=== PATIENT | male | born 1940 | race Caucasian/White ===

== ENCOUNTER 2019-01-15 10:41 | Outpatient (REF) | payer OTHER, SELFPAY ==
[2019-01-15 20:36] LABS: Anion Gap 9.4 mmol/L (3-11); BUN 17 mg/dL (7-18); CO2 28.6 mmol/L (21.0-32.0); CREATININE 0.96 mg/dL (0.70-1.30); Calcium 8.8 mg/dL (8.5-10.1); Chloride 102 mmol/L (98-107); Glucose 129 mg/dL (70-100); Potassium 4.3 mmol/L (3.5-5.1); Sodium 140 mmol/L (136-145)
== END 2019-01-15 11:01 ==
LOC: NCHCN 10:41
PROVIDERS: PCP Physician Assistant; Visit Provider Physician Assistant Medical
DX: E11.9 Type 2 diabetes mellitus without complications (principal)
CPT/HCPCS: 80048

== ENCOUNTER 2020-01-22 13:05 | Outpatient (REF) | payer OTHER, SELFPAY ==
[2020-01-22 20:30] LABS: ALT 21 U/L (16-63); Anion Gap 6.3 mmol/L (3-11); BUN 12 mg/dL (7-18); CO2 29.7 mmol/L (21.0-32.0); CREATININE 0.86 mg/dL (0.70-1.30); Chloride 102 mmol/L (98-107); Glucose 109 mg/dL (74-106); LDL CHOLESTEROL 71 mg/dL (<100); Potassium 4.4 mmol/L (3.5-5.1); Sodium 138 mmol/L (136-145)
== END 2020-01-22 13:25 ==
LOC: NCHCN 13:05
PROVIDERS: PCP Physician Assistant; Visit Provider Internal Medicine
DX: I87.2 Venous insufficiency (chronic) (peripheral) (principal); E11.40 Type 2 diabetes mellitus with diabetic neuropathy, unspecified; E11.9 Type 2 diabetes mellitus without complications; E78.5 Hyperlipidemia, unspecified
CPT/HCPCS: 80048; 83721; 84460

== ENCOUNTER 2021-02-14 13:13 | Outpatient (REF) | payer OTHER, SELFPAY ==
[2021-02-14 19:43] LABS: ALT 37 U/L (16-63); Anion Gap 7.2 mmol/L (3-11); BUN 18 mg/dL (7-18); CO2 26.8 mmol/L (21.0-32.0); Calcium 8.9 mg/dL (8.5-10.1); Chloride 104 mmol/L (98-107); Glucose 134 mg/dL (74-106); LDL CHOLESTEROL 72 mg/dL (<100); Potassium 4.3 mmol/L (3.5-5.1); Sodium 138 mmol/L (136-145)
[2021-02-14 19:53] LABS: COMMENT (LAB VIEW ONLY) 171.04 mg/dL; Microalb ug/mg Crea 5.6 ug/mg Cr
== END 2021-02-14 13:14 | disposition home or self-care (01) ==
LOC: NCHCN 13:13
PROVIDERS: PCP Physician Assistant; Visit Provider Internal Medicine
DX: E11.9 Type 2 diabetes mellitus without complications (principal); E78.5 Hyperlipidemia, unspecified; N40.0 Benign prostatic hyperplasia without lower urinary tract symptoms
CPT/HCPCS: 80048; 83721; 82043; 82570; 84460

== ENCOUNTER 2022-10-02 16:36 | Outpatient (REF) | payer MEDICARE, SELFPAY ==
[2022-10-02 20:06] LABS: Anion Gap 6.5 mmol/L (3-11); BUN 22 mg/dL (7-18); CO2 26.5 mmol/L (21.0-32.0); CREATININE 1.1 mg/dL (0.70-1.30); Calcium 9.3 mg/dL (8.5-10.1); Calculated LDL 54 mg/dL (<100); Chloride 99 mmol/L (98-107); Cholesterol 126 mg/dL (<200); Estimated GFR 66.61 (mL/min/1.73m2); Glucose 139 mg/dL (74-106); HDL Cholesterol 50 mg/dL (40-60); Potassium 4.5 mmol/L (3.5-5.1); Sodium 132 mmol/L (136-145); Triglyceride 112 mg/dL (<150)
== END 2022-10-02 16:37 | disposition home or self-care (01) ==
LOC: NCHCN 16:36
PROVIDERS: PCP Physician Assistant; Visit Provider Internal Medicine
DX: E11.9 Type 2 diabetes mellitus without complications (principal); E78.5 Hyperlipidemia, unspecified
CPT/HCPCS: 80048; 80061

== ENCOUNTER 2023-01-01 12:45 | Outpatient (REF) | payer MEDICARE, SELFPAY ==
[2023-01-01 19:41] LABS: COMMENT (LAB VIEW ONLY) 61.71 mg/dL; Microalb ug/mg Crea 26.1 ug/mg Cr
== END 2023-01-01 12:46 | disposition home or self-care (01) ==
LOC: NCHCN 12:45
PROVIDERS: PCP Physician Assistant; Visit Provider Internal Medicine
DX: I35.0 Nonrheumatic aortic (valve) stenosis (principal); E11.40 Type 2 diabetes mellitus with diabetic neuropathy, unspecified
CPT/HCPCS: 82043; 82570

== ENCOUNTER 2023-11-02 14:53 | Outpatient (REF) | payer MEDICARE, SELFPAY ==
[2023-11-02 20:02] LABS: COMMENT (LAB VIEW ONLY) 47.39 mg/dL; Microalb ug/mg Crea 20.7 ug/mg Cr
== END 2023-11-02 14:54 | disposition home or self-care (01) ==
LOC: NCHCN 14:53
PROVIDERS: PCP Physician Assistant; Visit Provider Internal Medicine
DX: E11.9 Type 2 diabetes mellitus without complications (principal)
CPT/HCPCS: 82043; 82570

== ENCOUNTER 2024-08-28 13:28 | Outpatient (REF) | payer MEDICARE, SELFPAY ==
[2024-08-28 19:38] LABS: ALT 32 U/L (16-63); Anion Gap 4.1 mmol/L (3-11); BUN 25 mg/dL (7-18); CO2 29.9 mmol/L (21.0-32.0); CREATININE 1.1 mg/dL (0.70-1.30); Calcium 9.8 mg/dL (8.5-10.1); Calculated LDL 61 mg/dL (<100); Chloride 105 mmol/L (98-107); Cholesterol 152 mg/dL (<200); Creatine Kinase 74 U/L (39-308); Estimated GFR 66.19 (mL/min/1.73m2); Glucose 159 mg/dL (74-106); HDL Cholesterol 62 mg/dL (40-60); Potassium 4.5 mmol/L (3.5-5.1); Sodium 139 mmol/L (136-145); Triglyceride 149 mg/dL (<150)
== END 2024-08-28 13:29 | disposition home or self-care (01) ==
LOC: NCHCN 13:28
PROVIDERS: PCP Physician Assistant; Visit Provider Internal Medicine
DX: E78.5 Hyperlipidemia, unspecified (principal); E11.9 Type 2 diabetes mellitus without complications
CPT/HCPCS: 80048; 80061; 82550; 84460